=== PATIENT | female | born 1985 | race Caucasian/White ===

== ENCOUNTER 2016-12-09 07:25 | Day surgery (SDC) | payer MEDICAID ==
[~2016-12-09] VITALS: Ht 160 cm; Wt 56.7 kg
[~2016-12-09 07:25] MED LIST: ACETAMIN325 MG PO; BACTRIM DS1 TAB OR; CIPRO500 MG OR; CIPROFLOXACN500 MG PO; CLINDAMYCIN300 M1 PO; CONCEPT OB PO; DEPO-PROVER150 MG/ML IM; FERROUS SULF325 M1 PO; FIORICET PO; FLUZONE SPLT1 M1 IM; IBUPROFEN600 MG PO; IRON18 M1 PO; IRON325 MG OR; LORTAB 1010 MG PO; MACRODANTIN100 MG PO; NAPROSYN500 MG PO; NO HOME MEDS; OB COMPLET2 PO; PRENATA3 OR; TUBERSOL5 MG/0.1 M ID; ULTRAM50 M1 PO; ULTRAM50 MG PO; ZITHROMAX250 MG PO; [UNRECOGNIZED DRUG - OTHER] PO
[2016-12-09] MEDS ORDERED: PERCOCET 5/325M1 TAB PO (11:23)
[2016-12-09 11:38] VITALS: BP 107/67
== END 2016-12-09 11:55 | disposition home or self-care (01) | DRG 572 ==
LOC: ORM 07:25
PROVIDERS: ATTEND Surgery
PROC: 0JB70ZZ Excision of Back Subcutaneous Tissue and Fascia, Open Approach (ICD-10-PCS; principal; 2016-12-09)
DX: D17.1 Benign lipomatous neoplasm of skin and subcutaneous tissue of trunk (principal)

== ENCOUNTER 2019-07-20 | Emergency (ER) | payer MEDICAID ==
[~2019-07-20] MED LIST changes: +PERCOCET 5/325M1 TAB PO
[2019-07-20] MEDS ORDERED: ANUCORT-HC25 MG RE (02:11)
[2019-07-20] MEDS ORDERED: PHENERGAN25 MG/TAB PO (02:11)
== END 2019-07-20 02:42 | disposition home or self-care (01) ==
DX: G43.909 Migraine, unspecified, not intractable, without status migrainosus (principal); K64.9 Unspecified hemorrhoids

== ENCOUNTER 2022-03-05 22:08 | Emergency (ER) | payer MEDICAID ==
[~2022-03-05] VITALS: Ht 160 cm; Wt 50.9 kg
[~2022-03-05 22:08] MED LIST changes: +ANUCORT-HC25 MG RE; +PHENERGAN25 MG/TAB PO
[2022-03-05] MEDS ORDERED: LEXAPRO10 MG PO (23:17)
[2022-03-05 23:45] LABS: HEMATOCRIT 37.9 % (37.0-47.0); HEMOGLOBIN 12.5 g/dl (12.0-16.0); IMMATURE GRANULOCYTES 0.1 % (0.0-5.0); MEAN CELL VOLUME 88.8 fL CALC (80.0-100.0); MEAN CORPUSCULAR HGB 29.3 pG CALC (26.0-32.0); NEUT# 6.32 thou/uL (2.00-7.15); RED BLOOD COUNT 4.27 mill/uL (4.20-5.60); RED CELL DISTRI WIDTH 12.5 % (11.5-15.5)
[2022-03-05 23:55] LABS: BUN 11 mg/dL (7-17); BUN/CREATININE RATIO 13 (12-20 (CALC)); CARBON DIOXIDE 28 mmol/l (22-30); CHLORIDE 104 mmol/l (95-108); CREATININE 0.9 mg/dL (0.5-1.0); GFR FOR AFR.AMER. > 60 ML/MIN (>=60 (CALC)); GFR OTHER RACES > 60 ML/MIN (>=60 (CALC)); SGOT/AST 26 u/l (14-36); SODIUM 140 mmol/l (137-146); TOTAL PROTEIN 7.3 g/dL (6.3-8.2)
[2022-03-05 23:56] LABS: ALBUMIN 4.8 g/dL (3.2-5.0); ALKALINE PHOSPHATASE 41 u/l (38-126); ANION GAP 12 (6-22 (CALC)); BILIRUBIN, TOTAL 0.3 mg/dL (0.0-1.4); POTASSIUM 3.7 mmol/l (3.5-5.1)
[2022-03-06] MEDS ORDERED: LEXAPRO10 MG PO (00:08)
[2022-03-06 00:19] VITALS: BP 122/78
== END 2022-03-06 00:30 | disposition home or self-care (01) ==
LOC: ED 22:08
PROVIDERS: Emergency Medicine
DX: F41.9 Anxiety disorder, unspecified (principal)

== ENCOUNTER 2022-07-19 20:00 | Emergency (ER) | payer MEDICAID ==
[~2022-07-19] VITALS: Ht 160 cm; Wt 49.8 kg
[2022-07-19] VITALS (9 sets, daily range): BP systolic 110–158; BP diastolic 66–95
[~2022-07-19 20:00] MED LIST changes: +LEXAPRO10 MG PO
[2022-07-19 20:44] LABS: BASO% 0.5 % (0-3); HEMATOCRIT 39.5 % (37.0-47.0); HEMOGLOBIN 12.7 g/dl (12.0-16.0); IMMATURE GRANULOCYTES 0.1 % (0.0-5.0); LYMPH% 32.1 % (15-41); MEAN CELL VOLUME 88.6 fL CALC (80.0-100.0); MEAN CORPUSCULAR HGB 28.5 pG CALC (26.0-32.0); MEAN CORPUSCULAR HGB CONC 32.2 g/dL CAL (32.0-36.0); NEUT# 6.18 thou/uL (2.00-7.15); NEUT% 61.3 % (42-76); RED BLOOD COUNT 4.46 mill/uL (4.20-5.60); RED CELL DISTRI WIDTH 12.5 % (11.5-15.5)
[2022-07-19 20:59] LABS: ALBUMIN 4.8 g/dL (3.2-5.0); ALKALINE PHOSPHATASE 40 u/l (38-126); ANION GAP 13 (6-22 (CALC)); BUN 6 mg/dL (7-17); BUN/CREATININE RATIO 8 (12-20 (CALC)); CARBON DIOXIDE 26 mmol/l (22-30); CHLORIDE 103 mmol/l (95-108); CREATININE 0.8 mg/dL (0.5-1.0); ETHYL ALCOHOL 0 mg/dl (0-30); GFR FOR AFR.AMER. > 60 ML/MIN (>=60 (CALC)); GFR OTHER RACES > 60 ML/MIN (>=60 (CALC)); POTASSIUM 3.8 mmol/l (3.5-5.1); SGOT/AST 28 u/l (14-36); SODIUM 138 mmol/l (137-146); TOTAL PROTEIN 7.6 g/dL (6.3-8.2)
[2022-07-19 21:02] LABS: BILIRUBIN, TOTAL 0.5 mg/dL (0.02-1.3)
[2022-07-19 21:18] LABS: URINE BILIRUBIN - DIPSTICK NEGATIVE (NEGATIVE); URINE BLOOD DIPSTICK TRACE-INTACT (NEGATIVE); URINE COLOR YELLOW; URINE GLUCOSE - DIPSTICK NEGATIVE (NEGATIVE); URINE KETONE NEGATIVE (NEGATIVE); URINE PROTEIN - DIPSTICK NEGATIVE (NEG-TRACE); URINE SPECIFIC GRAVITY <=1.005; URINE UROBILINOGEN - DIPSTICK 0.2 E.U./dL (0.2)
[2022-07-19 21:22] LABS: URINE LEUK ESTERASE SMALL (NEGATIVE); URINE NITRITE - DIPSTICK NEGATIVE (Negative)
[2022-07-19 21:24] LABS: URINE BACTERIA MODERATE hpf; URINE SQUAMOUS EPITHELIAL CELL MANY EPI/hpf (0-FEW)
[2022-07-19] MEDS ORDERED: CIPROFLOXACN500 MG PO (21:28)
== END 2022-07-19 22:34 | disposition home or self-care (01) ==
LOC: ED 20:00
PROVIDERS: Emergency Medicine
DX: R07.89 Other chest pain (principal); N39.0 Urinary tract infection, site not specified; Z20.822 Contact with and (suspected) exposure to COVID-19